=== PATIENT | female | born 1990 | race Caucasian/White ===

== ENCOUNTER → 2016-11-15 | Outpatient (CLI) | payer OTHER ==
[2016-11-15 12:14] LABS: BASO % 0 % (0-3); EOS # 0.2 x10^3/uL (0.0-0.7); EOS % 2 % (0-3); HEMATOCRIT 39.5 % (36.0-47.0); HEMOGLOBIN 13.3 g/dL (12.0-15.5); LYMPH # 1.7 x10^3/uL (1.0-4.8); LYMPH % 19 % (24-48); MEAN CORPUSCULAR HEMOGLOBIN 31 pg (25-35); MEAN CORPUSCULAR HGB CONC 34 g/dL (31-37); MEAN CORPUSCULAR VOLUME 93 fL (79-100); MONO # 0.5 x10^3/uL (0.0-1.1); MONO % 6 % (0-9); NEUT # 6.4 x10^3uL (1.8-7.7); NEUT % 73 % (31-73); PLATELET COUNT 243 x10^3/uL (140-400); RED BLOOD COUNT 4.26 x10^6/uL (3.50-5.40); RED CELL DISTRIBUTION WIDTH 13.1 % (11.5-14.5); WHITE BLOOD COUNT 8.7 x10^3/uL (4.0-11.0)
--- NOTE | 2016-11-15 14:33 | RAD ---
Pelvic ultrasound 11/15/2016 at 1113 hours Indication: First trimester ultrasound, a menorrhea. LMP 09/08/2016. Comparison: None available Technique: Transabdominal sonographic imaging was performed for evaluation of the uterus and ovaries. Transvaginal sonographic imaging was performed for further detailed evaluation of the pelvic viscera. Grayscale, color Doppler and spectral waveform analysis were utilized. Findings: The uterus measures 8.8 x 5.1 x 4.5 cm. A normal-appearing gestational sac is identified with a pole and yolk sac. [place]-rump length measures 0.6 cm compatible with a gestational age of 6 weeks and 3 days. heart tones are present with heart rate measuring 98 bpm. There is a small amount of simple free fluid within the pelvis. No significant uterine fibroids are identified. The right ovary measures 2.7 x 1.7 x 2.6 cm and is normal in appearance. There is normal arterial and venous flow by color Doppler and spectral waveform. The left ovary measures 4.3 x 3.2 x 3.4 cm. There is a 2.2 x 1.7 x 1.5 cm hyperechoic area compatible with a corpus luteal cyst. There is normal arterial and venous flow by color Doppler and spectral waveform. Impression: A single gestational sac is identified with a pole and yolk sac compatible with intrauterine . Gestational age by crown-rump length is 6 weeks and 3 days. heart tones are present measuring 98 bpm. heart tones are borderline and short-term follow-up sonographic evaluation as well as serial beta hCG is recommended.
[2016-11-16 22:07] LABS: HSV 1&2 IGM <0.91 Ratio (0.00-0.90)
== END | disposition home or self-care (01) ==
LOC: LAB 10:10
PROVIDERS: ATTEND Nurse Practitioner Family
DX: Z32.00 Encounter for pregnancy test, result unknown (principal); Z3A.01 Less than 8 weeks gestation of pregnancy
CPT/HCPCS: 36415; 76801; 76817; 84702; 85027; 86592; 86593; 86703; 86762; 86900; 86901; 87340; 87529

== ENCOUNTER → 2016-11-17 | Outpatient (CLI) | payer OTHER | END | disposition home or self-care (01) | LOC: LAB 09:14 | PROVIDERS: ATTEND Specialist | DX: Z33.1 Pregnant state, incidental (principal) | CPT/HCPCS: 36415; 84702 ==

== ENCOUNTER → 2016-11-22 | Outpatient (CLI) | payer OTHER ==
--- NOTE | 2016-11-22 12:23 | RAD ---
EXAM: Obstetrical ultrasound. HISTORY: Supervision normal . COMPARISON: None. FINDINGS: Sonographic evaluation of the pelvis was performed transabdominally. The uterus is anteverted and measures 10.7 x 6.4 x 5.4 cm. There is a single intrauterine gestation measuring 7 weeks 0 days based on crown-rump length 1.0 cm. There is no subchorionic collection. heart rate is 132 beats from minute. The right ovary measures 2.5 x 2.6 x 2.5 cm. The left measures 4.4 x 2.9 x 3.7 cm. There is normal flow bilaterally. IMPRESSION: 1. Single intrauterine gestation measuring 7 weeks 0 days. heart rate 132 bpm.
== END | disposition home or self-care (01) ==
LOC: US 10:50
PROVIDERS: ATTEND Specialist
DX: Z33.1 Pregnant state, incidental (principal); Z3A.01 Less than 8 weeks gestation of pregnancy
CPT/HCPCS: 76801

== ENCOUNTER 2020-07-06 21:30 | Emergency (ER) | payer OTHER ==
[~2020-07-06] VITALS: Ht 167.6 cm; Wt 81.5 kg
--- NOTE | 2020-07-06 21:38 | PHYS DOC ---
Past History Past Medical History: UTI General Adult HPI: HPI: ".. I ve.. been hurting the last couple days.. lower abdomen. some dysuria and end of urination.. . .maybe .. I have a UTI... 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 Patient's had symptoms for the last 2 days. Pain seems to be more pronounced at the end of micturition. Patient has had previous urinary tract infections. No history of previous kidney stones. 2 term 2. Last was in 2017. Patient's menstruation was earlier 2 weeks ago. Patient has not had an STD. Patient has no concerns for STD symptoms at this time. Patient in the past to follow-up with Dr. Max Pierre. Patient originally was from [facility] however moved to [place] and has now just returned after 7-year absence. 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 Patient is normally healthy. No immunosuppression. No history of trauma. Patient does not have a history of constipation issues and IBS. Has had a normal stool today. Review of Systems: Review of Systems: Constitutional: Denies fever or chills Eyes: Denies change in visual acuity HENT: Denies nasal congestion or sore throat Respiratory: Denies cough or shortness of breath Cardiovascular: Denies chest pain or edema GI: Complains of lower abdominal pain,. Denies nausea, vomiting, bloody stools or diarrhea : Complains of dysuria Musculoskeletal: Denies back pain or joint pain Integument: Denies rash Neurologic: Denies headache, focal weakness or sensory changes Endocrine: Denies polyuria or polydipsia Lymphatic: Denies swollen glands Psychiatric: Denies depression or anxiety Family History: Family History: Father has history of kidney stones Current Medications: Current Meds: See nursing for home meds Allergies: Allergies: No known drug allergies Physical Exam: PE: Constitutional: Well developed, well nourished, no acute distress, non-toxic appearance. [] HENT: Normocephalic, atraumatic, bilateral external ears normal, oropharynx moist, no oral exudates, nose normal. [] Eyes: PERRLA, EOMI, conjunctiva normal, no discharge. Glasses Neck: Normal range of motion, no tenderness, supple, no stridor. [] Cardiovascular:Heart rate regular rhythm, no murmur [] Lungs & Thorax: Bilateral breath sounds equal at apex auscultation [] Abdomen: Bowel sounds decreased, soft, lower mid abdomen tenderness, no masses, no pulsatile masses. Mild distention. Pelvic exam deferred at this time. Mild rebound to area of discomfort on the right. Skin: Warm, dry, no erythema, no rash. [] Back: No tenderness, does have right CVA tenderness on percussion. Extremities: No tenderness, no cyanosis, no clubbing, ROM intact, no edema. No psoas sign. Neurologic: Alert and oriented X 3, normal motor function, normal sensory function, no focal deficits noted. [] Psychologic: Affect anxious, judgement normal, mood normal. [] EKG: EKG: [] Radiology/Procedures: Radiology/Procedures: [] Heart Score: Risk Factors: Risk Factors: DM, Current or recent (<one month) smoker, HTN, HLP, family history of CAD, obesity. Risk Scores: Score 0 - 3: 2.5% MACE over next 6 weeks - Discharge Home Score 4 - 6: 20.3% MACE over next 6 weeks - Admit for Clinical Observation Score 7 - 10: 72.7% MACE over next 6 weeks - Early Invasive Strategies Course & Med Decision Making: Course & Med Decision Making Pertinent Labs and Imaging studies reviewed. (See chart for details) Patient declined CT at this time. Patient Labs at this time. Patient deferred IV antibiotics at this time. Patient push fluids. Patient push vitamin C drinks. Patient take Tylenol and ibuprofen for discomfort. Patient take Bactrim DS twice a day. Patient follow- up culture. Patient return if any concerns. There is mild concern of pyelonephritis however does not have significant fever, tachycardia, or history of immunosuppression. Impression: 1. Dysuria and hematuria 2. Abdomen pain 3. UTI [] Dragon Disclaimer: Dragon Disclaimer: This electronic medical record was generated, in whole or in part, using a voice recognition dictation system. Departure Departure: Referrals: PCP,NO (PCP) Scripts Sulfamethoxazole/Trimethoprim (BACTRIM DS TABLET) 1 Each Tablet 1 TAB PO BID for uti for 10 Days, #20 TAB 0 Refills Prov: NAIN JOHNSON MD 07/06/20 Fred Disclaimer This chart was dictated in whole or in part using Voice Recognition software in a busy, high-work load, and often noisy Emergency Department environment. It may contain unintended and wholly unrecognized errors or omissions. NAIN JOHNSON MD Jul 06, 2020 21:38
[2020-07-06 22:08] VITALS: BP 148/76
[2020-07-06 22:26] LABS: BARBITURATES NEG (NEG); BENZODIAZEPINES NEG (NEG); CANNABINOIDS NEG (NEG); COCAINE NEG (NEG); METHADONE NEG (NEG); OPIATES NEG (NEG); PHENCYCLIDINE NEG (NEG)
[2020-07-06 22:28] LABS: AMPHETAMINE/METHAMPHETAMINE NEG (NEG)
[2020-07-06 22:33] LABS: BILIRUBIN,URINE NEG (NEG); CLARITY,URINE HAZY; COLOR,URINE YELLOW; GLUCOSE,URINE NEG (NEG)
[2020-07-06 22:34] LABS: BACTERIA,URINE FEW /HPF (0-FEW); NITRITE,URINE NEG (NEG); RBC,URINE >40 /HPF (0-2); SQUAMOUS EPITHELIAL CELL,UR OCC /LPF; UROBILINOGEN,URINE 0.2 mg/dL (0.2 mg/dL); WBC,URINE >40 /HPF (0-4)
[2020-07-06] MEDS ORDERED: SULF1TAB24 PO (22:47)
[2020-07-06] MEDS ORDERED: SMZ/TMP 800/160MG TABLET. PO ONE (23:00)
[2020-07-06] MEDS ORDERED: PHENAZOPYRIDINE 200 MG TABLET. PO ONE (23:00)
== END 2020-07-06 23:00 | disposition home or self-care (01) ==
LOC: ER 21:30
DX: N39.0 Urinary tract infection, site not specified (principal); R31.9 Hematuria, unspecified; Z87.440 Personal history of urinary (tract) infections
CPT/HCPCS: 36415; 80307; 81001; 81025; 87086; 99283

== ENCOUNTER → 2021-01-28 | Outpatient (CLI) | payer OTHER ==
[~2021-01-28] MED LIST: SULF1TAB24 PO
[2021-01-28 08:44] LABS: ALBUMIN 3.4 g/dL (3.4-5.0); CALCIUM 8.4 mg/dL (8.5-10.1); CREATININE 0.6 mg/dL (0.6-1.0); POTASSIUM 3.8 mmol/L (3.5-5.1); TOTAL BILIRUBIN 0.4 mg/dL (0.2-1.0); TOTAL PROTEIN 6.8 g/dL (6.4-8.2)
--- NOTE | 2021-01-28 08:59 | RAD ---
CT of the abdomen and pelvis without contrast. 01/28/2021 8:08 AM Indication: Reason: GENERALIZED ABDOMINAL PAIN : Comparison Study: None. Technique: Multidetector CT imaging of the abdomen pelvis is obtained without administration of contr ast. Findings: The visualized bilateral lung bases are clear. The liver, spleen, bilateral adrenal glands, gallbladder, and pancreas have a normal noncontrast enh anced appearance. The bilateral kidneys are grossly normal in appearance. There is no evidence of nep hrolithiasis or obstructive uropathy. The ureters are normal in course and caliber. The uterus is ant everted. Mass effect upon the bladder from the interim uterus and mildly distended cecum noted. The b ladder is otherwise unremarkable. There is no evidence of bowel obstruction or inflammatory change in volving the bowel. Increased formed stool appears be present throughout the colon suggesting constipa tion. No CT evidence of appendicitis is seen. No free fluid or free air seen in the abdomen or pelvis . There is no acute osseous abnormality identified. Impression: 1. Increased stool throughout the colon suggesting constipation 2. No other acute intra-abdominal abnormality is identified CT DOSING PQRS STATEMENT: One or more of the following individualized dose reduction techniques were utilized for this examinat ion: 1. Automated exposure control 2. Adjustment of the mA and/or kV according to patient size 3. Use of iterative reconstruction technique Electronically signed by: Luciano Salcedo MD (01/28/2021 8:57 AM) [id number]
[2021-01-28 09:00] LABS: BASO % 1 % (0-3); EOS # 0.3 x10^3/uL (0.0-0.7); EOS % 4 % (0-3); HEMATOCRIT 36.8 % (36.0-47.0); HEMOGLOBIN 12.6 g/dL (12.0-15.5); LYMPH # 1.6 x10^3/uL (1.0-4.8); LYMPH % 23 % (24-48); MEAN CORPUSCULAR HEMOGLOBIN 32 pg (25-35); MEAN CORPUSCULAR HGB CONC 34 g/dL (31-37); MEAN CORPUSCULAR VOLUME 92 fL (79-100); MONO # 0.3 x10^3/uL (0.0-1.1); MONO % 5 % (0-9); NEUT # 4.7 x10^3uL (1.8-7.7); NEUT % 67 % (31-73); PLATELET COUNT 207 x10^3/uL (140-400); RED BLOOD COUNT 3.98 x10^6/uL (3.50-5.40); RED CELL DISTRIBUTION WIDTH 12.5 % (11.5-14.5)
[2021-01-28 11:14] LABS: SEDIMENTATION RATE 7 (0-25)
== END ==
LOC: CT 08:03
PROVIDERS: ATTEND Physician Assistant Medical
DX: R10.9 Unspecified abdominal pain (principal)
CPT/HCPCS: 36415; 74176; 80053; 85025; 85651